=== PATIENT | male | born 1970 | race Caucasian/White ===

== ENCOUNTER → 2019-01-19 | Outpatient (CLI) | payer OTHER ==
[2019-01-19 15:08] LABS: HEMATOCRIT 42.8 % (42.0-52.0); MCH 30.5 pg (26.0-34.0); MCHC 34.9 g/dL (28.0-37.0); MCV 87.4 fL (80.0-100.0); MPV 6.6 fl. (7.2-11.1); RBC 4.9 mil/uL (4.50-6.00); RDW-CV 12.9 % (10.5-14.5); WBC 8.4 thou/uL (4.0-11.0)
[2019-01-21 11:08] LABS: ANA INTERPRETATION Negative (Negative)
== END ==
LOC: M.LAB 14:41
PROVIDERS: Orthopaedic Surgery
DX: M19.011 Primary osteoarthritis, right shoulder (principal)

== ENCOUNTER → 2021-07-19 | Outpatient (CLI) | payer OTHER | LOC: M.CT 11:45 | PROVIDERS: ATTEND Nurse Practitioner Family | DX: Z13.6 Encounter for screening for cardiovascular disorders (principal) ==